=== PATIENT | male | born 1960 | race Caucasian/White ===

== ENCOUNTER 2023-03-11 07:44 | Day surgery (SDC) | payer BC ==
[~2023-03-11] VITALS: Ht 180.3 cm; Wt 80.7 kg
[~2023-03-11 07:44] MED LIST: CRUTCH3 USE; ESCI5; HYDACE5 PO; MONT10T PO; NEBI5 PO; Norco 10-325 T1 EACH PO; PHENA200 PO; RXHYDACE PO; SULTRIDS PO
[2023-03-11] MEDS ORDERED: ALLO300 (08:10)
[2023-03-11] MEDS ORDERED: ESZO2 (08:10)
[2023-03-11] MEDS ORDERED: OMEP20ER (08:10)
[2023-03-11 10:06] VITALS: BP 134/94
== END 2023-03-11 10:08 | disposition home or self-care (01) ==
LOC: ORSCSDS 07:44
PROVIDERS: Internal Medicine Gastroenterology
PROC: 0DBK8ZX Excision of Ascending Colon, Via Natural or Artificial Opening Endoscopic, Diagnostic (ICD-10-PCS; principal; 2023-03-11 09:15)
PROC: 0DBN8ZX Excision of Sigmoid Colon, Via Natural or Artificial Opening Endoscopic, Diagnostic (ICD-10-PCS; principal; 2023-03-11 09:15)
PROC: 0DBL8ZX Excision of Transverse Colon, Via Natural or Artificial Opening Endoscopic, Diagnostic (ICD-10-PCS; principal; 2023-03-11 09:15)
PROC: 0DBM8ZX Excision of Descending Colon, Via Natural or Artificial Opening Endoscopic, Diagnostic (ICD-10-PCS; principal; 2023-03-11 09:15)
DX: Z12.11 Encounter for screening for malignant neoplasm of colon (principal); Z86.010 Personal history of colon polyps; D12.3 Benign neoplasm of transverse colon; D12.2 Benign neoplasm of ascending colon; D12.4 Benign neoplasm of descending colon; K63.5 Polyp of colon; I10 Essential (primary) hypertension; F17.210 Nicotine dependence, cigarettes, uncomplicated; Z79.899 Other long term (current) drug therapy
CPT/HCPCS: 88305; J2250; J2704; J7120